=== PATIENT | male | born 1975 | race Hispanic/Latino ===

== ENCOUNTER 2018-06-22 07:48 | Day surgery (SDC) | payer BC ==
[2018-06-16 12:36] VITALS: BP 117/79
[2018-06-16 12:44] LABS: BASOPHILS % (AUTO) 1.3 % (0.0-5.0); EOSINOPHILS % (AUTO) 6.7 % (0.0-8.0); HEMATOCRIT 41.8 % (42-54); LYMPHOCYTES % (AUTO) 42.2 % (21.0-51.0); MEAN CORPUSCULAR HEMOGLOBIN 34.5 pg (27.0-33.0); MEAN CORPUSCULAR HGB CONC 35.5 g/dL (32.0-36.0); MEAN CORPUSCULAR VOLUME 97.2 fL (79-99); MONOCYTES % (AUTO) 9.9 % (3.0-13.0); NEUTROPHILS % (AUTO) 39.9 % (40.0-77.0); NUCLEATED RED BLOOD CELLS 0.1 % (0.0-0.19); PLATELET COUNT (AUTO) 179 K/uL (130-400); RED CELL DISTRIBUTION WIDTH 12.1 % (11.0-15.5); WHITE BLOOD COUNT (AUTO) 3.4 K/uL (4.8-10.8)
[2018-06-16 12:51] LABS: CREATININE 1.1 mg/dL (0.5-1.5); POTASSIUM 3.8 mmol/L (3.5-5.1)
[~2018-06-22] VITALS: Ht 180.3 cm; Wt 90.1 kg
[2018-06-22] VITALS (14 sets, daily range): BP systolic 113–158; BP diastolic 78–92
[~2018-06-22 07:48] MED LIST: DICL2100G TP; LORA10TA7 PO; NAPR-1023 PO; OMEP20TA25 PO; SUMA50TA17 PO; TOPI100T37 PO; TRAM50TA4 PO; VITA-328 PO; ZOLP10TA6 PO
[2018-06-22] MEDS ORDERED: LACTATED RINGERS 1000ML 1,000 ML IV ONE (09:02)
[2018-06-22] MEDS: CEFAZOLIN SODIUM 1 GM VIAL ONE ×2 (09:47→11:15)
[2018-06-22] MEDS ORDERED: ONDANSETRON HCL 4 MG/2 ML VIAL ONE (10:40)
[2018-06-22] MEDS ORDERED: FENTANYL CITRATE PF 50 MCG/1 ML 2ML VIAL ONE ×2 (10:40→13:05)
[2018-06-22] MEDS ORDERED: PROPOFOL 10 MG/ML 20ML VIAL IV ONE ×2 (10:40→12:37)
[2018-06-22] MEDS ORDERED: LIDOCAINE PF 2% 5ML ABBOJECT ONE (10:40)
[2018-06-22] MEDS ORDERED: MIDAZOLAM HCL 1 MG/ML 2ML VIAL ONE (10:41)
[2018-06-22] MEDS ORDERED: ROCURONIUM 10MG/1ML SYR 10 MG/ML ML ONE (10:43)
[2018-06-22] MEDS ORDERED: ROPIVACAINE 0.5% 5MG/ML 30ML IJ ONE (10:46)
[2018-06-22] MEDS ORDERED: KETAMINE 50MG/ML SYRINGE 50 MG/ML DISP.SYRIN IV ONE (10:47)
[2018-06-22] MEDS ORDERED: GLYCOPYRROLATE 1 MG/5 ML SYRINGE ONE (12:30)
[2018-06-22] MEDS ORDERED: NEOSTIGMINE 5MG/5ML SYR IV ONE (12:30)
[2018-06-22] MEDS ORDERED: KETOROLAC TROMETHAMINE 30MG/ML ONE (12:39)
== END 2018-06-22 14:45 | disposition home or self-care (01) ==
LOC: DAH 07:48
PROVIDERS: ATTEND Orthopaedic Surgery
DX: M75.41 Impingement syndrome of right shoulder (principal); M75.51 Bursitis of right shoulder; Z87.891 Personal history of nicotine dependence; K21.9 Gastro-esophageal reflux disease without esophagitis; R51 Headache
CPT/HCPCS: 29822; 36415; 80048; 85025; A4218; A4248; A4565; A4649 ×5; A4930 ×2; A6204; A6223; J0690; J1885; J2001; J2250; J2405; J2704 ×2; J2710; J2795; J3010 ×2; J3490 ×2; J7120 ×2

== ENCOUNTER 2020-07-31 05:56 | Day surgery (SDC) | payer BC, OTHER ==
[2020-07-23 12:52] LABS: BASOPHILS % (AUTO) 1.3 % (0.0-5.0); HEMATOCRIT 49.6 % (42-54); LYMPHOCYTES % (AUTO) 36.4 % (21.0-51.0); MEAN CORPUSCULAR HEMOGLOBIN 34.1 pg (27.0-33.0); MEAN CORPUSCULAR HGB CONC 34.5 g/dL (32.0-36.0); MEAN CORPUSCULAR VOLUME 98.8 fL (79-99); MONOCYTES % (AUTO) 7.2 % (3.0-13.0); NEUTROPHILS % (AUTO) 49.9 % (40.0-77.0); PLATELET COUNT (AUTO) 206 K/uL (130-400); RED BLOOD CELL COUNT(AUTO) 5.02 MIL/uL (4.50-6.20); RED CELL DISTRIBUTION WIDTH 12.3 % (11.0-15.5); WHITE BLOOD COUNT (AUTO) 4.6 K/uL (4.8-10.8)
[2020-07-23 13:14] LABS: CREATININE 1.1 mg/dL (0.5-1.5); POTASSIUM 4.1 mmol/L (3.5-5.1)
[~2020-07-31] VITALS: Ht 180.3 cm; Wt 87.5 kg
[2020-07-31] VITALS (18 sets, daily range): BP systolic 120–158; BP diastolic 70–96
[~2020-07-31 05:56] MED LIST changes: -DICL2100G TP; +LACTATED RINGERS 1000ML 1,000 ML IV SCH; -LORA10TA7 PO; -OMEP20TA25 PO; -SUMA50TA17 PO; -TOPI100T37 PO; -VITA-328 PO; +ZOLP10TA2 PO; -ZOLP10TA6 PO
[2020-07-31] MEDS: CEFAZOLIN SODIUM 1 GM VIAL IVP SCH ×2 (06:00→08:38)
[2020-07-31] MEDS ORDERED: OMEP20TA25 PO (06:56)
[2020-07-31] MEDS ORDERED: PROPOFOL 10 MG/ML 20ML VIAL IV ONE (07:19)
[2020-07-31] MEDS ORDERED: ROCURONIUM 10MG/1ML SYR 10 MG/ML ML ONE (07:19)
[2020-07-31] MEDS ORDERED: SUCCINYLCHOLINE CHLORIDE 20 MG/ML 10 ML VIAL ONE (07:19)
[2020-07-31] MEDS ORDERED: MIDAZOLAM HCL 1 MG/ML 2ML VIAL ONE (07:19)
[2020-07-31] MEDS ORDERED: LIDOCAINE PF 2% 5ML ABBOJECT ONE (07:19)
[2020-07-31] MEDS ORDERED: FENTANYL CITRATE PF 50 MCG/1 ML 2ML VIAL ONE (07:20)
[2020-07-31] MEDS ORDERED: ROPIVACAINE 0.5% 5MG/ML 30ML IJ ONE (07:27)
[2020-07-31] MEDS ORDERED: BUPIVACAINE/EPI/PF 0.25% 10ML VIAL IJ ONE ×2 (07:51→08:50)
[2020-07-31] MEDS ORDERED: GLYCOPYRROLATE 1 MG/5 ML SYRINGE ONE (09:50)
[2020-07-31] MEDS ORDERED: NEOSTIGMINE 5MG/5ML SYR IV ONE (09:50)
[2020-07-31] MEDS ORDERED: KETOROLAC TROMETHAMINE 30MG/ML ONE (09:52)
== END 2020-07-31 12:00 | disposition home or self-care (01) ==
LOC: DAH 05:56
PROVIDERS: ATTEND Orthopaedic Surgery
DX: M67.411 Ganglion, right shoulder (principal); M19.011 Primary osteoarthritis, right shoulder; M75.42 Impingement syndrome of left shoulder; M19.012 Primary osteoarthritis, left shoulder; Z87.891 Personal history of nicotine dependence; Z20.828 Contact with and (suspected) exposure to other viral communicable diseases
CPT/HCPCS: 23076; 23120; 36415; 80048; 85025; A4215; A4221; A4222; A4223; A4565; A4600; A4649 ×4; A4663; A6207; C9803; G0168; J0330; J0690; J1885; J2001; J2250; J2704; J2710; J2795; J3010; J3490 ×3; J7120; U0003